=== PATIENT | male | born 2000 | race Caucasian/White ===

== ENCOUNTER 2022-06-06 16:06 | Emergency (ER) | payer MEDICAID, OTHER, SELFPAY ==
--- NOTE | ~2022-06-06 | CT_ITS ---
EXAMINATION: CT ABDOMEN AND PELVIS WITH CONTRAST CLINICAL INFORMATION: Epigastric pain COMPARISON: None TECHNIQUE: Multidetector volumetric images were obtained from the superior aspect of the liver through the pubic symphysis following administration 85 mL of Omnipaque 350 intravenous contrast. Sagittal and coronal reformatted images were obtained on the technologist's workstation. Oral contrast: No This CT examination was performed using dose optimization techniques as appropriate, variously including the following: *Automated exposure control *Adjustment of mA and/or kV according to patient size (this includes techniques or standardized protocols for targeted exams where dose is matched to indication/reason for exam; i.e. extremities or head) *Use of iterative reconstruction technique DLP: 380 mGy-cm FINDINGS: LUNG BASES: The visualized lung bases are unremarkable. LIVER, GALLBLADDER, AND BILIARY TREE: The liver is normal in size, shape, and attenuation. No focal hepatic lesion or biliary ductal dilatation is present. The gallbladder is unremarkable with no evidence of radiopaque gallstones, gallbladder wall thickening, or obvious pericholecystic inflammatory changes. PANCREAS: Unremarkable. SPLEEN: Unremarkable. ADRENAL GLANDS: Unremarkable. KIDNEYS AND URETERS: The kidneys are normal in size, shape, and attenuation. No hydronephrosis, hydroureter, or calculi seen. No perinephric stranding. BLADDER: Unremarkable. GASTROINTESTINAL TRACT: The bowel pattern is nonobstructing. There is no free fluid. The appendix is within normal limits. Exam is demonstrating some small bowel wall thickening proximally. Enteritis would need to be considered infectious versus noninfectious ABDOMINAL WALL: No significant hernia is appreciated. LYMPH NODES: Normal. VASCULAR: Unremarkable. PELVIC VISCERA: Unremarkable. OSSEOUS STRUCTURES: Unremarkable. CT/CT abdomen pelvis w IV con IMPRESSION: Thickening of small bowel wall involving the proximal small bowel. Findings may be consistent with enteritis infectious versus noninfectious etiology.
[2022-06-06 16:08] VITALS: BP 112/82; PULSE 102; RESP 18; TEMP 36.3; O2SAT 100; BMI 21.0
--- NOTE | 2022-06-06 16:10 | ED.ABDPAIN ---
HPI - Abdominal Pain General Chief Complaint: Abdominal Pain <RAKAN Day Last Filed: 06/06/22 16:14> Stated Complaint: vomiting/ stomach pain <RAKAN Day Last Filed: 06/06/22 16:14> Time Seen by Provider: 06/06/22 17:54 <RAKAN Day Last Filed: 06/06/22 16:14> Source: patient <RAKAN Monreal Last Filed: 06/06/22 21:12> Mode of arrival: ambulatory <RAKAN Monreal Last Filed: 06/06/22 21:12> Limitations: no limitations <RAKAN Monreal Last Filed: 06/06/22 21:12> History of Present Illness HPI narrative: This is a 21-year-old male history of gastritis presenting to the emergency department with nausea, vomiting, epigastric pain x1 week. Patient tells me that he feels like he is having a flare of his gastritis. He tells me he has not been able to eat or drink much due to the pain. Patient reports that the pain is in epigastric region it is a severe burning pain, he tells me sometimes he feels the pain to the right side of his abdomen however right now it is only localized in the epigastric region. Patient tells me he drinks socially however has not drank recently. Patient denies sick contacts. Denies chest pain, shortness of breath, fevers, chills, hematemesis, diarrhea, flank pain, changes in urination, headache, vision changes, dizziness. <RAKAN Monreal Last Filed: 06/06/22 21:12> Related Data Home Medications: Previous Rx's Medication Instructions Recorded aluminum-mag hydroxide-simethicone 5 ml PO 5XD PRN dyspepsia #355 mL 06/06/22 200 mg-200 mg-20 mg/5 mL oral susp (Maalox Advanced) famotidine 40 mg tablet (Pepcid) 40 mg PO DAILY #14 tabs 06/06/22 <RAKAN Day Last Filed: 06/06/22 16:14> Allergies/Adverse Reactions: Allergies Allergy/AdvReac Type Severity Reaction Status Date / Time No Known Allergies Allergy Verified 06/06/22 16:13 <RAKAN Day - Last Filed: 06/06/22 16:14> Review of Systems Review of Systems Constitutional : No Weight loss, No Fever, No Chills, No Fatigue, No Malaise ENT/Mouth : No sore throat, No Rhinorrhea Eyes: No Eye Pain, No Swelling, No Redness Cardiovascular : No Chest Pain, No SOB, No Dyspnea on Exertion, No Orthopnea, No Edema, No Palpitations Respiratory : No Cough, No Sputum, No Wheezing Gastrointestinal : + Nausea, + Vomiting, No Diarrhea, No Constipation, + abdominal Pain, No Hematochezia, No Melena Genitourinary : No Dysuria, No Urinary Frequency, No Hematuria, Musculoskeletal : No joint pain, No Myalgias, No Joint Swelling Skin : No Skin Lesions, No rash Neuro : No Weakness, No Numbness, No Dizziness, No Headache Psych : No Anxiety/Panic, No Depression All other systems reviewed and are negative <RAKAN Monreal - Last Filed: 06/06/22 21:12> Yes all other systems are reviewed and are negative <RAKAN Monreal - Last Filed: 06/06/22 21:12> [facility]LY [facility] Past Medical History Attestation statement: The following information was validated with the patient. <RAKAN Monreal - Last Filed: 06/06/22 21:12> Source: old records reviewed and nursing notes reviewed <RKAAN Monreal - Last Filed: 06/06/22 21:12> Social History Social History: Social History Advance Directives: No <RAKAN Day - Last Filed: 06/06/22 16:14> Physical Exam ED Vital Signs: Vital Signs - 24 hr 06/06/22 16:08 06/06/22 18:00 06/06/22 20:00 Temperature 97.4 F 98.9 F 97.4 F Pulse Rate 102 H 84 87 Respiratory Rate 18 16 16 Blood Pressure 112/82 112/64 118/69 Pulse Oximetry 100 98 98 Oxygen Delivery Method Room Air Room Air Room Air BMI result Body Mass Index 21.0 <RAKAN Day Last Filed: 06/06/22 16:14> Vital Signs - 24 hr 06/06/22 16:08 06/06/22 18:00 06/06/22 20:00 Temperature 97.4 F 98.9 F 97.4 F Pulse Rate 102 H 84 87 Respiratory Rate 18 16 16 Blood Pressure 112/82 112/64 118/69 Pulse Oximetry 100 98 98 Oxygen Delivery Method Room Air Room Air Room Air BMI result Body Mass Index 21.0 vss <RAKAN Monreal - Last Filed: 06/06/22 21:12> Appearance: Alert.? Oriented X3.? No acute distress.? Head: Normocephalic, atraumatic, no step-offs or deformities Eyes: Pupils equal, round and reactive to light.? Neck: Normal inspection.? Neck supple.? CVS: Normal heart rate and rhythm.? Pulses normal.? Respiratory: No respiratory distress.? Breath sounds normal.? Abdomen: Soft and + tenderness to epigastric region .? Skin: Skin warm and dry.? Normal skin color.? Normal skin turgor.? Extremities: No lower extremity edema.? No calf ttp. 5/5 strength to bilateral upper and lower extremities Neuro: Oriented X 3.? No motor deficit.? No sensory deficit. CN 2-12 intact <RAKAN Monreal - Last Filed: 06/06/22 21:12> Course Course Course Narrative: RME--21yo M w/PMHx gastritis c/o nausea, vomiting and abdominal pain x1 week. Admits sx similar to prior gastritis attacks, denies taking any mediactions. Also reports dysuria. Abd soft, guarding during eval, unable to perform proper abdominal exam in chair in triage Labs, UA, IV Zofran, Maalox, Pepcid ordered <RAKAN Day Last Filed: 06/06/22 16:14> Reevaluation(s) Reevaluation #1: Patient's CBC with elevated leukocytosis 17.3 likely reactive secondary to nausea, vomiting, I do not suspect this is infectious in origin, chemistry with no acute electrolyte abnormalities requiring intervention. Lipase within normal limits. Again supporting this is likely gastritis versus GERD or both. CT of the abdomen and pelvis concerning for possible enteritis however unlikely bacterial likely not infectious, patient without diarrhea. Will educate and bland diet, pain control. Patient tolerating p.o. tells me he feels much better after GI cocktail. Patient tells me he is no longer having pain and feels well to go home. Will be discharged home with famotidine and Maalox as needed. Will give him follow-up with GI. Educated patient on diagnosis and treatment plan, answered all question, patient verbalizes understanding. At this time patient will be discharged home, advised to return with new or worsening symptoms. Educated on worrisome signs and symptoms and when to return. At this time I feel comfortable discharge home. To note at time of discharge patient tolerating p.o. without difficulties. <RAKAN Monreal - Last Filed: 06/06/22 21:12> Time: 20:16 <RAKAN Monreal Last Filed: 06/06/22 21:12> Medical Decision Making Medical Decision Making MDM Narrative: 29-year-old male presents with nausea, vomiting, epigastric abdominal pain described as burning, tells me it feels like his previous episode of gastritis x8 days. Describes poor p.o. intake due to pain. Physical exam with epigastric tenderness. Vital signs stable. Patient appears nontoxic and comfortable. Likely gastritis versus GERD. I do not suspect pancreatitis, cholecystitis, diverticulitis, appendicitis or acute abdomen. Unlikely UTI or pyelonephritis. History and physical exam not consistent with AAA Plan at this time labs, imaging, GI cocktail. <RAKAN Monreal Last Filed: 06/06/22 21:12> Differential Diagnosis Differential Diagnoses: The differential diagnosis associated with the presentation includes <RAKAN Monreal Last Filed: 06/06/22 21:12> Likely gastritis versus GERD. I do not suspect pancreatitis, cholecystitis, diverticulitis, appendicitis or acute abdomen. Unlikely UTI or pyelonephritis. History and physical exam not consistent with AAA <RAKAN Monreal Last Filed: 06/06/22 21:12> Admission/Observation Consideration of admission/observation: Escalation of care including admission/observation considered <RAKAN Monreal Last Filed: 06/06/22 21:12> Unlikely <RAKAN Monreal Last Filed: 06/06/22 21:12> Lab Data MDM Lab Attestation statement: I reviewed the patient's lab results. <RAKAN Monreal - Last Filed: 06/06/22 21:12> Result Diagrams: 06/06/22 16:17 06/06/22 16:17 <RAKAN Day - Last Filed: 06/06/22 16:14> Labs: Lab Results 06/06/22 06/06/22 Range/Units 16:17 16:17 WBC 17.3 H (4.8-10.8) X10*3/uL RBC 5.50 (4.60-5.80) X10*6/uL Hgb 16.8 (14.0-18.0) g/dl Hct 48.2 (42.0-52.0) % MCV 87.6 (80.0-98.0) fL MCH 30.5 (27.0-33.0) pg MCHC 34.9 (31.0-36.0) g/dl RDW 12.3 (11.0-16.0) % Plt Count 286 (160-400) X10*3/uL MPV 9.5 (9.4-12.4) fL Immature Gran % (Auto) 0.5 H (0.0-0.4) % Neut % (Auto) 77.5 H (45-73) % Lymph % (Auto) 11.9 L (20-40) % Swift % (Auto) 8.3 (2-11) % Eos % (Auto) 1.5 (0-4) % Baso % (Auto) 0.3 (0-2) % Lymph # (Auto) 2.1 (1.2-4.9) X10*3/uL [place] # (Auto) 1.4 H (0.1-1.2) X10*3/uL Eos # (Auto) 0.3 (0.0-0.4) X10*3/uL Baso # (Auto) 0.1 (0.0-0.2) X10*3/uL Abs Immat Gran (auto) 0.08 H (0.00-0.03) X10*3/uL Absolute Neuts (auto) 13.4 H (2.0-8.3) x10*3/uL Absolute Nucleated RBC 0.000 (0.0-0.012) X10*3/uL Nucleated RBC % (auto) 0.0 (0.0-0.2) /100WBC Sodium 140 (135-145) mmol/L Potassium 3.7 (3.3-5.1) mmol/L Chloride 105 (96-108) mmol/L Carbon Dioxide 23 (22-29) mmol/L Anion Gap 16 (12-20) BUN 16 (9-16) mg/dL Creatinine 0.75 (0.5-1.4) mg/dL Estim Creat Clear Calc 114.9 Estimated GFR > 60 Random Glucose 93 (60-115) mg/dL Calcium 9.8 (8.4-10.2) mg/dL Magnesium 1.9 (1.6-2.6) mg/dL Total Bilirubin 0.6 (0.0-1.0) mg/dL Direct Bilirubin 0.2 (0.0-0.5) mg/dL AST 31 (5-37) U/L ALT 67 H (0-40) U/L Alkaline Phosphatase 114 (39-117) U/L Total Protein 8.0 (6.5-8.0) g/dL Albumin 4.8 (3.5-5.0) g/dL Lipase 15 (8-78) U/L <RAKAN Day - Last Filed: 06/06/22 16:14> Lab Results 06/06/22 06/06/22 Range/Units 16:17 16:17 WBC 17.3 H (4.8-10.8) X10*3/uL RBC 5.50 (4.60-5.80) X10*6/uL Hgb 16.8 (14.0-18.0) g/dl Hct 48.2 (42.0-52.0) % MCV 87.6 (80.0-98.0) fL MCH 30.5 (27.0-33.0) pg MCHC 34.9 (31.0-36.0) g/dl RDW 12.3 (11.0-16.0) % Plt Count 286 (160-400) X10*3/uL MPV 9.5 (9.4-12.4) fL Immature Gran % (Auto) 0.5 H (0.0-0.4) % Neut % (Auto) 77.5 H (45-73) % Lymph % (Auto) 11.9 L (20-40) % Swift % (Auto) 8.3 (2-11) % Eos % (Auto) 1.5 (0-4) % Baso % (Auto) 0.3 (0-2) % Lymph # (Auto) 2.1 (1.2-4.9) X10*3/uL Swift # (Auto) 1.4 H (0.1-1.2) X10*3/uL Eos # (Auto) 0.3 (0.0-0.4) X10*3/uL Baso # (Auto) 0.1 (0.0-0.2) X10*3/uL Abs Immat Gran (auto) 0.08 H (0.00-0.03) X10*3/uL Absolute Neuts (auto) 13.4 H (2.0-8.3) x10*3/uL Absolute Nucleated RBC 0.000 (0.0-0.012) X10*3/uL Nucleated RBC % (auto) 0.0 (0.0-0.2) /100WBC Sodium 140 (135-145) mmol/L Potassium 3.7 (3.3-5.1) mmol/L Chloride 105 (96-108) mmol/L Carbon Dioxide 23 (22-29) mmol/L Anion Gap 16 (12-20) BUN 16 (9-16) mg/dL Creatinine 0.75 (0.5-1.4) mg/dL Estim Creat Clear Calc 114.9 Estimated GFR > 60 Random Glucose 93 (60-115) mg/dL Calcium 9.8 (8.4-10.2) mg/dL Magnesium 1.9 (1.6-2.6) mg/dL Total Bilirubin 0.6 (0.0-1.0) mg/dL Direct Bilirubin 0.2 (0.0-0.5) mg/dL AST 31 (5-37) U/L ALT 67 H (0-40) U/L Alkaline Phosphatase 114 (39-117) U/L Total Protein 8.0 (6.5-8.0) g/dL Albumin 4.8 (3.5-5.0) g/dL Lipase 15 (8-78) U/L <RAKAN Monreal - Last Filed: 06/06/22 21:12> Independent Interpretation I performed an independent interpretation of an: CT Scan (Likely non infectious enteritis) <RAKAN Monreal - Last Filed: 06/06/22 21:12> Radiology Impression Discussion of test interpretation with radiology: I have reviewed the radiologist's reading. <RAKAN Monreal - Last Filed: 06/06/22 21:12> Core Measures AMI core measures followed: Yes <RAKAN Monreal - Last Filed: 06/06/22 21:12> Measure exclusions: not indicated <RAKAN Monreal - Last Filed: 06/06/22 21:12> Medications Administered Discontinued Medications Generic Name Dose Route Start Last Admin Trade Name Freq PRN Reason Stop Dose Admin Al Hydroxide/Mg Hydroxide 30 ml 06/06/22 16:13 06/06/22 17:45 Magnesium Hydrox/Alum Hydrox 30 Ml Oral.Susp PO 06/06/22 16:14 30 ml ONCE ONE Administration Famotidine 20 mg 06/06/22 16:13 06/06/22 17:45 Famotidine/Pf 20 Mg/2 Ml Vial IVPUSH 06/06/22 16:14 20 mg ONCE ONE Administration Iohexol 100 ml 06/06/22 19:28 06/06/22 19:28 Iohexol 350 Mg/Ml 100 Ml Infus..Btl IV 06/06/22 19:29 85 ml ONCE ONE Administration Ondansetron HCl 4 mg 06/06/22 16:13 06/06/22 17:46 Ondansetron Hcl 4 Mg/2 Ml Vial IVPUSH 06/06/22 16:14 4 mg ONCE ONE Administration <RAKAN Day - Last Filed: 06/06/22 16:14> Medications Administered Discontinued Medications Generic Name Dose Route Start Last Admin Trade Name Freq PRN Reason Stop Dose Admin Al Hydroxide/Mg Hydroxide 30 ml 06/06/22 16:13 06/06/22 17:45 Magnesium Hydrox/Alum Hydrox 30 Ml Oral.Susp PO 06/06/22 16:14 30 ml ONCE ONE Administration Famotidine 20 mg 06/06/22 16:13 06/06/22 17:45 Famotidine/Pf 20 Mg/2 Ml Vial IVPUSH 06/06/22 16:14 20 mg ONCE ONE Administration Iohexol 100 ml 06/06/22 19:28 06/06/22 19:28 Iohexol 350 Mg/Ml 100 Ml Infus..Btl IV 06/06/22 19:29 85 ml ONCE ONE Administration Ondansetron HCl 4 mg 06/06/22 16:13 06/06/22 17:46 Ondansetron Hcl 4 Mg/2 Ml Vial IVPUSH 06/06/22 16:14 4 mg ONCE ONE Administration <RAKAN Monreal - Last Filed: 06/06/22 21:12> Critical Care Time Critical Care Time Critical Care Time: No <RAKAN Monreal - Last Filed: 06/06/22 21:12> Discharge Plan Discharge Clinical Impression: Gastritis, Gastroesophageal reflux disease, Enteritis <RAKAN Day - Last Filed: 06/06/22 16:14> Patient Disposition: Home, Self-Care <RAKAN Day - Last Filed: 06/06/22 16:14> Instructions: Gastritis (ED), Gastroesophageal Reflux Disease (ED) <RAKAN Day - Last Filed: 06/06/22 16:14> Additional Instructions: Take your medications as prescribed. If you were prescribed antibiotics today, it is important that you take your medication to their entirety, do not skip any doses, do not finish them early. Follow-up with your primary care provider this week. Please follow-up with gastroenterology Return to the emergency department with new or worsening symptoms. Such as fevers, chills, chest pain, shortness of breath, nausea, vomiting, dizziness, headache, vision changes, lethargy In case of emergency call 911 [place] cesar medicamentos seg?n lo prescrito. Si le recetaron antibi?ticos hoy, es importante que tome perez medicamento en perez totalidad, no se salte ninguna dosis, no los termine antes de tiempo. Seguimiento con perez proveedor de atenci?n primaria esta semana. Por favor, seguimiento con gastroenterolog?a. Regrese al departamento de emergencias con s?ntomas nuevos o que empeoran. [place] fiebre, escalofr?os, dolor de pecho, dificultad para respirar, n?useas, v?mitos, mareos, dolor de lefty, cambios en la visi?n, letargo En arnold de emergencia llama al 911 CT/CT abdomen pelvis w IV con IMPRESSION: Thickening of small bowel wall involving the proximal small bowel. Findings may be consistent with enteritis infectious versus noninfectious etiology. <RAKAN Day - Last Filed: 06/06/22 16:14> Prescriptions: New famotidine [Pepcid] 40 mg tablet 40 mg PO DAILY Qty: 14 0RF alum-mag hydroxide-simeth [Maalox Advanced] 200-200-20 mg/5 mL suspension 5 ml PO 5XD PRN (Reason: dyspepsia) Qty: 355 0RF Rx Instructions: administer between meals and at bedtime <RAKAN Day - Last Filed: 06/06/22 16:14> Referrals: [facility] [Provider Group] - 3 days Physician,None [Primary Care Provider] - 2 days <RAKAN Day - Last Filed: 06/06/22 16:14> Stand Alone Forms: Work/School Release <RAKAN Day - Last Filed: 06/06/22 16:14> Interventions: ED Discharge Assessment Last Done: 06/06/22 20:45 <RAKAN Day - Last Filed: 06/06/22 16:14> Discharge Date/Time: 06/06/22 20:45 <RAKAN Day - Last Filed: 06/06/22 16:14>
[2022-06-06 16:22] LABS: MANUAL DIFF FLAG NO
[2022-06-06 16:24] LABS: Basophils Absolute Auto 0.1 X10*3/uL (0.0-0.2); Basophils Percent Auto 0.3 % (0-2); Eosinophils Absolute Auto 0.3 X10*3/uL (0.0-0.4); Eosinophils Percent Auto 1.5 % (0-4); Hematocrit 48.2 % (42.0-52.0); Hemoglobin 16.8 g/dl (14.0-18.0); Imm Gran Abs Auto 0.08 X10*3/uL (0.00-0.03); Imm Gran Pct Auto 0.5 % (0.0-0.4); Lymphocytes Absolute Auto 2.1 X10*3/uL (1.2-4.9); Lymphocytes Percent Auto 11.9 % (20-40); Mean Corpuscular HGB Conc 34.9 g/dl (31.0-36.0); Mean Corpuscular Hemoglobin 30.5 pg (27.0-33.0); Mean Corpuscular Volume 87.6 fL (80.0-98.0); Mean Platelet Volume 9.5 fL (9.4-12.4); Monocytes Absolute Auto 1.4 X10*3/uL (0.1-1.2); Monocytes Percent Auto 8.3 % (2-11); Neutrophils Absolute Auto 13.4 x10*3/uL (2.0-8.3); Neutrophils Percent Auto 77.5 % (45-73); Platelet Count 286 X10*3/uL (160-400); Red Cell Distribution Width 12.3 % (11.0-16.0); White Blood Count 17.3 X10*3/uL (4.8-10.8)
[2022-06-06 16:52] LABS: Alanine Aminotransferase 67 U/L (0-40); Albumin Level 4.8 g/dL (3.5-5.0); Alkaline Phosphatase 114 U/L (39-117); Anion Gap 16 (12-20); Aspartate Amino Transferase 31 U/L (5-37); Bilirubin Direct 0.2 mg/dL (0.0-0.5); Bilirubin Total 0.6 mg/dL (0.0-1.0); Blood Urea Nitrogen 16 mg/dL (9-16); Calcium 9.8 mg/dL (8.4-10.2); Carbon Dioxide 23 mmol/L (22-29); Chloride 105 mmol/L (96-108); Creatinine Clr Calc Pharmacy 114.9; Estimated Glomerular Filt Rate > 60; Glucose Random 93 mg/dL (60-115); Lipase 15 U/L (8-78); Magnesium 1.9 mg/dL (1.6-2.6); Potassium 3.7 mmol/L (3.3-5.1); Sodium 140 mmol/L (135-145)
[2022-06-06] MEDS: Famotidine/PF 20 MG/2 ML VIAL IVPUSH (17:45)
[2022-06-06] MEDS: Magnesium Hydrox/Alum Hydrox 30 ML ORAL.SUSP PO (17:45)
[2022-06-06] MEDS: ondansetron HCL 4 MG/2 ML VIAL IVPUSH (17:46)
[2022-06-06 18:00] VITALS: BP 112/64; PULSE 84; RESP 16; TEMP 37.2; O2SAT 98
--- NOTE | 2022-06-06 18:00 | MHC.EDTECH ---
1800 rounding done ,patient vitals sign taken ,patient is watching television ,call thomas within reach ,i ask patient if he needed anything , patient said no he was fine .
[2022-06-06] MEDS: iohexoL 350 MG/ML 100 ML INFUS..BTL IV (19:28)
[2022-06-06 20:00] VITALS: BP 118/69; PULSE 87; RESP 16; TEMP 36.3; O2SAT 98
--- NOTE | 2022-06-06 20:00 | MHC.EDTECH ---
2000 rounding done ,patient vitals sign taken ,patient resting ,call thomas within reach .
== END 2022-06-06 20:45 | disposition home or self-care (01) ==
PROVIDERS: Physician Assistant; Emergency Provider Emergency Medicine
DX: K29.70 Gastritis, unspecified, without bleeding (principal); K52.9 Noninfective gastroenteritis and colitis, unspecified; K21.9 Gastro-esophageal reflux disease without esophagitis
CPT/HCPCS: 36415; 74177; 80048; 80076; 83690; 83735; 85025; 96374; 96375; 99283; 99284; J2405; Q9967